=== PATIENT | female | born 1950 | race Caucasian/White ===

== ENCOUNTER 2023-08-15 13:50 | Outpatient (AMB) | payer MEDICARE, SELFPAY ==
--- NOTE | 2023-08-15 14:08 | A.OFFVIS_ITS ---
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 She will feel frequently that her heart would be irregular occasionally in a pattern sometimes. She occasionally feels jumping of her heart but this is not frequent. When she is up and about an active she does not have any active symptoms of palpitation. Does complain of exertional shortness of breath but she thinks this is related to her deconditioning. Denies any orthopnea, PND. Does have bilateral leg edema. Denies any exertional chest pain. No lightheadedness, syncope. Takes all her medications and currently on Lasix 40 mg for bilateral lower extremity edema. She says she has not able to wear compression stockings due to neuropathy which bothers her. [facility] Medical History HTN (hypertension) Surgical History History of hip surgery Hx of hysterectomy Family History Father CAD (coronary artery disease) Mother CHF (congestive heart failure) Social History Patient Tobacco Use Status: Never used Tobacco Review of Systems Const Denies chills, Denies daytime sleepiness, Denies fatigue, Denies fever(s), Denies frequent falls, Denies poor appetite, Denies snoring, Denies stops breathing during sleep, Denies weakness, Denies weight gain and Denies weight loss Eyes Denies loss of vision ENT Denies dizziness and Denies hearing loss Card Denies chest pain, Denies claudication, Denies leg edema, Denies lightheadedness, Denies palpitations, Denies dyspnea, Denies dyspnea on exertion and Denies orthopnea Resp Denies cough, Denies excessive phlegm production, Denies dyspnea, Denies dyspnea on exertion, Denies snoring and Denies wheezing GI Denies abdominal pain, Denies hematochezia, Denies change in bowel habits, Denies nausea and Denies vomiting Denies urinary frequency and Denies dysuria Musc Denies arthralgias, Denies muscle weakness, Denies numbness and Denies other (frequent falls) Skin/Breast Denies nail changes and Denies rash Neuro Denies Abnormal speech present, Denies dizziness, Denies frequent falls, Denies loss of vision, Denies memory loss, Denies numbness and Denies weakness Psych Denies depression and Denies memory loss Endo Denies fatigue and Denies palpitations Víctor/Lymph Reports easy bruising and Reports other (anemia) Aller/Immun Denies wheezing Physical Exam Vital Signs: Last Vital Signs Pulse 71 08/15/23 14:09 BP 120/74 08/15/23 14:09 BMI result Body Mass Index 41.9 Const General: cooperative, comfortable, no acute distress, alert and awake Nutritional Appearance: obese Orientation/consciousness: patient oriented x3 Limitations: no limitations HEENT Head: Yes normocephalic and Yes atraumatic Neck Neck: Yes trachea midline, Yes supple and Yes no JVD Resp Effort & Inspection: normal respiratory effort Auscultation: clear to auscultation bilaterally Cardio Jugular venous distension: no JVD Rate: regular rate Rhythm: abnormal rhythm with ectopic beats Heart sounds: S1 normal heart sound present, S2 normal heart sound present, no click, no gallops, no murmurs and no rubs Bruits: no carotid bruits GI Auscultation: normal bowel sounds Skin General skin exam: no rashes or lesions noted Neuro General: patient oriented x3 and no focal motor deficits Speech: No Abnormal speech present Extrem General: No clubbing, No cyanosis and Yes edema (Below knee bilateral) Psych Appearance: grossly normal Office Procedures EKG Details: EKG shows normal sinus rhythm with low-voltage QRS at 71 beats per minute [id number], Complete Assessment & Plan Assessment & Plan (1) Exertional dyspnea: Code(s): R06.09 - Other forms of dyspnea Plan: Exertional shortness of breath in this elderly woman with multiple risk factors including hyperlipidemia, hypertension strong family history for coronary artery disease. Will schedule an exercise myocardial perfusion imaging to assess for myocardial ischemia especially given increased burden of arrhythmias. Further treatment based on the findings. Also suggest echocardiogram to evaluate LV systolic and diastolic function to evaluate for left ventricular hypertrophy and/or infiltrative disorder. These tests will be scheduled in near future. Further treatment based on the findings. (2) Cardiac arrhythmia: Code(s): I49.9 - Cardiac arrhythmia, unspecified Plan: Patient has increased symptoms of cardiac arrhythmias mostly that she can hear her irregular pulse. Most likely related to extra systoles, most likely PVCs. Workup for structural heart disease as above. Also suggest a Holter monitor to assess for diagnosis as well to assess for frequency of her arrhythmias. If she is more than 10% of beats as PVCs may require further uptitration of metoprolol therapy. This was discussed with her. We discussed about management of cardiac arrhythmias including avoidance of stimulants such as caffeine and alcohol. She understands and agrees. (3) HTN (hypertension): Code(s): I10 - Essential (primary) hypertension Plan: Longstanding hypertension which is currently well optimized advised to monitor blood pressure at home maintain a log. Goal blood pressure less than 130/84. Low-salt diet was discussed. Consider workup for sleep apnea with home sleep study. Importance of good blood pressure control was discussed. She understands agrees. Follow up in the clinic in 6 weeks time, sooner p.r.n.. Thank you for allowing me to partake in the care Orders: Orders CA stress test Today R06.09 - Other forms of dyspnea NM cardiolite stress test 2 Weeks R06.09 - Other forms of dyspnea, R07.9 - Chest pain, unspecified CA echo transthoracic complete Today I49.9 - Cardiac arrhythmia, unspecified ECG 3 day holter monitor Today I49.9 - Cardiac arrhythmia, unspecified Coding Level of Care Code New Pt Level 4 (71386) Diagnoses Exertional dyspnea R06.09 Cardiac arrhythmia I49.9 HTN (hypertension) I10 CPT Codes EKG - CPT: 17434-[id number], Complete ([id number])
[2023-08-15 14:09] VITALS: BP 120/74; PULSE 71; BMI 41.9
== END 2023-08-15 14:41 | disposition home or self-care (01) ==
PROVIDERS: PCP Internal Medicine; Visit Provider Internal Medicine Cardiovascular Disease
DX: R06.09 Other forms of dyspnea (principal); I49.9 Cardiac arrhythmia, unspecified; I10 Essential (primary) hypertension
CPT/HCPCS: 93010; 99204

== ENCOUNTER → 2023-08-15 13:50 | Outpatient (BNVA) | payer MEDICARE, SELFPAY | PROVIDERS: Visit Provider Internal Medicine Cardiovascular Disease | DX: I49.9 Cardiac arrhythmia, unspecified (principal); I10 Essential (primary) hypertension; R06.09 Other forms of dyspnea | CPT/HCPCS: 93005; 99202 ==

== ENCOUNTER → 2023-09-21 08:14 | Outpatient (REF) | payer MEDICARE, SELFPAY ==
--- NOTE | ~2023-09-21 | NM_ITS ---
Myocardial perfusion study Indication: Chest pain to evaluate for myocardial ischemia Technique: The patient was brought in for a Lexiscan perfusion study on 09/21/2023. Patient performed low-level exercise and was injected 0.4 mg of Lexiscan intravenously. Within a minute of injection, 35 mCi of sestamibi was given intravenously. Images were obtained using the SPECT gamma camera interlaced with the gating device. Images were obtained in supine position. Resting perfusion study was performed on 09/26/2023. Patient was administered 35 mCi of sestamibi intravenously at rest. Images were then obtained in supine position. Images obtained with and without CT attenuation. Total DLP 136 mGy-cm. Images were processed with the software and compared side to side in short axis, horizontal long axis and vertical long axis views. Findings: The stress perfusion study showed non attenuated images show normal uptake of radiotracer in all segments of LV myocardium. Is suggestion of left ventricle hypertrophy. Attenuation corrected images also some thinning at the distal septum and apex of the LV myocardium.. The gated study shows normal LV systolic function with calculated LVEF of 65%. LV cavity is normal in size. The gated study shows normal systolic wall thickening and contraction of segments. Resting study shows no change in perfusion pattern compared to stress perfusion study. Gating at rest reveals normal systolic wall motion with ejection fraction at 75%. The findings are consistent with no clear reversible defect suggestive of ischemia.. NM/NM cardiolite stress test Impression: 1. Myocardial perfusion imaging study shows likely normal myocardial perfusion 2. Gated LVEF is 65% 3. Transient ischemic dilatation not present EKG is nondiagnostic for ischemia
--- NOTE | 2023-09-21 08:19 | HM_ITS ---
Conclusion: 1. Patient was monitored for total period of 3 days 2. Baseline was normal sinus rhythm with average heart rate of 58 beats per minute 3. Frequent sinus bradycardia noted with 62% of time heart rate below 60 beats per minute with no significant pauses 4. Frequent PVCs noted with total burden of 4.7% with no significant ventricular tachyarrhythmias 5. Patient reported 5 events with symptoms of skipped heartbeats correlating with sinus rhythm with PVCs MTDD
--- NOTE | 2023-09-21 08:19 | CA_ITS ---
Acquisition Time: 2023-09-21 09:21:48 Total Exercise Time: 00:00:17 Test Indications: Dyspnea Medications: ASA+ +ATORVASTATIN FUROSEMIDE GABAPENTIN METOPROLOL NIFEDIPINE VALSARTAN Protocol: DAIN Max HR: 110 BPM 74% of Pred: 148 BPM Max BP: 130/068 mmHG Max Work Load: 1.5 METS Exercise stress test 17 sec of Dain protocol achieiving achieivng approximately 70% MPHR, patient couldnt keep up with treadmill with isolated PVCs at rest. Patient assisted to chair. Test changed to pharmacological stress test with lexiscan. Pharmacological stress test with Lexiscan injection while sitting and kicking her legs, with mild SOB, no chest discomfort, with isolated PVCs, with normotensive response to injection, with T wave inversion lead 3. Aminophylline 75mg IVP given to reverse Lexiscan. Nuclear images pending. Test reviewed with Dr. Godfrey. Referred By: Zurdo Vazquez Overread By: Rebeka Dorsey
--- NOTE | 2023-09-21 08:19 | CA_ITS ---
Transthoracic Echocardiogram Patient (Last, First, Middle): Freddie Smith, Gender: Female Date of : 1950 Age: 73 Procedure Date: 09/21/2023 Procedure Type: Transthoracic Echocardiogram Location: OP Height: 154.94 cm Weight: 99.79 kg BSA: 1.97 m2 Heart Rate: bpm BP: 120 / 70 mmHg Clinical Assistant: JAMI Referring MD: Zurdo Vazquez MD Under Presser: Zurdo Vazquez MD Symptoms: I49.9 - Cardiac arrhythmia, unspecified Study Quality: Fair ECG Rhythm: Sinus Conclusions: - 1. Normal LV systolic function with LVEF of 60-65% with impaired relaxation filling 2. Mildly dilated left atrium 3. Cardiac valvular Dopplers within normal limits 4. No gross pericardial effusion Findings Left Ventricle Normal left ventricular size, thickness, and systolic function. The visually estimated ejection fraction is between 60-65%. Spectral Doppler is indicative of an impaired relaxation filling pattern. E/E prime ratio is between 8 and 15 consistent with indeterminate filling pressures. Peak GLS is -20.1%, within normal limits. Right Ventricle Normal right ventricular cavity size and systolic function. Atria The left atrium is mildly dilated. Interatrial shunt cannot be excluded. The right atrium is likely dilated. Aortic Valve The aortic valve was not well visualized. There is mild calcification of the aortic valve. There is no aortic valve stenosis. The peak aortic velocity is 1.52 m/s with a calculated peak gradient of 9 mmHg. The mean gradient is 5 mmHg. The aortic valve area is 2.30 cm2. There is no aortic valve regurgitation. Mitral Valve There is mild anterior and posterior mitral leaflet thickening. There is mild mitral annular calcification. There is no mitral valve regurgitation. There is no mitral valve stenosis. Pulmonic Valve The pulmonic valve was not well visualized. Tricuspid Valve Likely normal tricuspid valve structure and function. Tricuspid regurgitation envelope is inadequate for calculation of right ventricular systolic pressure. Normal right atrial pressure. Great Vessels The aorta was not well visualized. The pulmonary artery was not well visualized. There is no dilatation of the ascending aorta measuring 3.20 cm. Venous The inferior vena cava is normal in size and collapses greater than 50% with inspiration. Pericardium/Pleural There is no evidence of pericardial effusion. Prior Study Comparison No prior study available for comparison. Measurements 2D Linear Measurements IVSd: 1.17 0.6-0.9/0.6-1.0 cm LVIDd: 4.25 3.9-5.3/4.2-5.9 cm LVIDd Index: 2.16 2.4-3.2/2.2-3.1 cm/m2 LVIDs: 3.01 2.0-3.6 cm LVPWd: 0.74 0.7-1.1 cm LA Diam: 4.00 2.7-3.8/3.0-4.0 cm LAIDs Index: 2.03 1.5-2.3 cm/m2 LV Mass: 163.73 67-162/88-224 g LV Mass Index: 83.11 43-95/49-115 g/m2 LVOT Diam: 1.90 3.0+(-)1.3 cm 2D Systolic Function EF 4C: 62.00 >55% EF 2C: 68.70 >55% EF BiP: 65.40 >55% Mitral Valve MV Pk E: 1.04 MV PK A: 1.18 MV Decel Time: 186.00 E/A: 0.90 E'Lateral: 11.70 E'Medial: 8.05 E/E' Med: 12.90 E/E' Lat: 8.90 PHT: 54.00 MVA PHT: 4.07 Decel [place]: 5.60 Aortic Valve AoV Pk Tj: 1.52 AoV Mn Tj: 1.07 AoV VTI: 0.37 AoV Pk Grad: 9.00 Aov Mn Grad: 5.00 JT Cont.VTI: 2.30 LVOT LVOT Pk Tj: 1.31 LVOT Mn Tj: 0.84 LVOT VTI: 0.30 LVOT Pk Grad: 7.00 LVOT Mn Grad: 3.00 LVOT Diam: 1.90 LVOT Area: 2.84 Diastolic Function MV Pk E: 1.04 MV Pk A: 1.18 E/A: 0.90 E'Medial: 8.05 E/E' Med: 12.90 E' Laterial: 11.70 E/E' Lat: 8.90 Right Ventricle TAPSE (mm): 32.30 TVS' Tj: 14.40 Tricuspid Valve RA Press: 3.00 Great Vessels Aorta Sinus of Valsalva: 3.17 2.0-3.[address] [place]: 2.11 1.7-3.4 cm Ao Asc: 3.20 2.1-3.4 cm Updated in Other Vendor System with Status of Final Zurdo Vazquez MD electronically signed on 09/21/2023 2:01:20 PM with status of Final
== END ==
LOC: HO.CARD 08:14
PROVIDERS: PCP Internal Medicine; Visit Provider Internal Medicine Cardiovascular Disease
DX: R06.09 Other forms of dyspnea (principal); I49.9 Cardiac arrhythmia, unspecified; I10 Essential (primary) hypertension; I49.3 Ventricular premature depolarization; R07.9 Chest pain, unspecified
CPT/HCPCS: 78452; 93017; 93242; 93306; 93356; A9500; J0280; J2785

== ENCOUNTER → 2023-09-21 08:19 | Outpatient (BNV) | payer MEDICARE, SELFPAY | PROVIDERS: PCP Internal Medicine; Visit Provider Internal Medicine Cardiovascular Disease | DX: I49.3 Ventricular premature depolarization (principal) | CPT/HCPCS: 78452; 93016; 93018; 93244; 93306 ==

== ENCOUNTER 2023-09-26 12:41 | Outpatient (REF) | payer MEDICARE, SELFPAY ==
[2023-09-26 13:06] LABS: MANUAL DIFF FLAG NO
[2023-09-26 13:33] LABS: Basophils Percent Auto 0.5 % (0-2); Eosinophils Absolute Auto 0.1 X10*3/uL (0.0-0.4); Eosinophils Percent Auto 2.2 % (0-4); Hematocrit 43.2 % (37.0-47.0); Hemoglobin 14.4 g/dl (12.0-16.0); Imm Gran Abs Auto 0.02 X10*3/uL (0.00-0.03); Imm Gran Pct Auto 0.3 % (0.0-0.4); Lymphocytes Absolute Auto 1.6 X10*3/uL (1.2-4.9); Lymphocytes Percent Auto 25.7 % (20-40); Mean Corpuscular HGB Conc 33.3 g/dl (31.0-35.0); Mean Corpuscular Hemoglobin 32.2 pg (27.0-33.0); Mean Corpuscular Volume 96.6 fL (80.0-98.0); Mean Platelet Volume 9.5 fL (9.4-12.3); Monocytes Absolute Auto 0.4 X10*3/uL (0.1-1.2); Monocytes Percent Auto 5.6 % (2-11); Neutrophils Absolute Auto 4.2 x10*3/uL (2.0-8.3); Neutrophils Percent Auto 65.7 % (45-73); Platelet Count 207 X10*3/uL (160-400); Red Blood Count 4.47 X10*6/uL (4.20-5.50); Red Cell Distribution Width 12.4 % (11.0-16.0); White Blood Count 6.4 X10*3/uL (4.8-10.8)
[2023-09-26 13:43] LABS: Estimated Average Glucose 117 mg/dL; Hemoglobin A1c % 5.7 % (<6.0)
[2023-09-26 14:29] LABS: Appearance Urine Clear; Color Urine Yellow; Glucose Urine UA Negative (Negative); Leukocyte Esterase Urine Small (1+) (Negative); Nitrite Urine Negative (Negative); PH 7.5 (5.0-9.0); UMIC TRIGGER UA YES; Urine Blood Negative (Negative); Urine Ketones Negative (Negative); Urine Protein Negative (Neg-Trace)
[2023-09-26 14:30] LABS: Alanine Aminotransferase 26 U/L (0-31); Albumin Level 4.4 g/dL (3.5-5.0); Alkaline Phosphatase 101 U/L (39-117); Anion Gap 13 (12-20); Aspartate Amino Transferase 20 U/L (5-31); Bilirubin Total 1.1 mg/dL (0.0-1.0); Blood Urea Nitrogen 11 mg/dL (9-16); Calcium 10.1 mg/dL (8.4-10.2); Carbon Dioxide 30 mmol/L (22-29); Chloride 104 mmol/L (96-108); Estimated Glomerular Filt Rate 57; Glucose Random 126 mg/dL (60-115); Sodium 143 mmol/L (135-145); Total Protein 7.2 g/dL (6.5-8.0)
[2023-09-26 14:39] LABS: Bacteria Urine None Seen (None Seen); Hyaline Casts Urine 0-2 /LPF (0-2); RBC Urine 0-2 /HPF (0-2); WBC Urine 0-5 /HPF (0-5)
[2023-09-26 14:45] LABS: Thyroid Stimulating Hormone 0.97 uIU/mL (0.32-4.0)
[2023-09-26 14:54] LABS: Creatinine Urine 65.87 mg/dL; Microalbum/Creatinine Ratio Ur 12.1 ug/mg cr (<30)
== END 2023-09-26 12:42 | disposition home or self-care (01) ==
LOC: HO.LAB 12:41
PROVIDERS: PCP Internal Medicine; Visit Provider Internal Medicine
DX: I10 Essential (primary) hypertension (principal); R73.03 Prediabetes; K21.9 Gastro-esophageal reflux disease without esophagitis; R60.0 Localized edema
CPT/HCPCS: 36415; 80053; 81001; 82043; 82570; 83036; 84443; 85025

== ENCOUNTER 2023-09-27 14:43 | Outpatient (AMB) | payer MEDICARE, SELFPAY ==
--- NOTE | 2023-09-27 14:55 | A.OFFVIS_ITS ---
Intake Vital Signs 09/27/23 14:56 Height 5 ft 2 in Weight 226 lb 10.163 oz BMI 41.4 BP 140/62 H Blood Pressure Location Lt brachial Position Sitting Pulse 79 Pulse Source Pulse Oximeter Intake Visit Reasons: f/up holter/ echo/ mibi/ NS Intake Note: pt its here for holter/echo/mibi/ pt states that she its doing fine. [employer] Wafers Tester Required: No Accompanied by: Self / Same As Patient Allergies No Known Allergies Allergy (Verified 08/15/23 14:12) Medication List - Last Reconciled 09/27/23 by Julia Alexander, ZENAIDA-C acetaminophen ER (Arthritis Pain Relief (acetaminophen) ER) 1,300 mg PO Q12H aspirin (Adult Aspirin Regimen) 81 mg PO DAILY atorvastatin 20 mg PO DAILY famotidine (Acid-Pep) 20 mg PO BID furosemide 40 mg PO gabapentin 1,200 mg PO BID metoprolol tartrate 50 mg PO BID nifedipine ER 30 mg PO DAILY valsartan 80 mg PO DAILY HPI f/up holter/ echo/ mibi/ NS HPI Details Freddie is a 73-year-old female past medical history of hypertension, morbid obesity who was recently evaluated for heart palpitations. She underwent a Holter monitor, echocardiogram and stress test and now presents for follow-up. Today she states that she can hear irregular heartbeats in her ears. At times she will feel the palpitation in her chest. Overall her symptom has not increased. She does notice it daily. She has had no lightheadedness, presyncope, syncope, falls. No chest discomfort at rest or with activity. She has some mild shortness of breath with exertion which is not new. No shortness of breath at rest, PND, orthopnea. She does have bilateral lower leg edema which is chronic. She does only light physical activity. She used to work as a nurse and retired 2 years ago. She takes her medications as directed. She tells me she has been on metoprolol and nifedipine for many many years. [facility] Medical History HTN (hypertension) Surgical History History of hip surgery Hx of hysterectomy Family History Father CAD (coronary artery disease) Mother CHF (congestive heart failure) Social History Patient Tobacco Use Status: Never used Tobacco Review of Systems Const All systems reviewed & are unremarkable except as noted in HPI and below Denies chills, Denies fatigue, Denies fever(s), Denies frequent falls, Denies weakness, Denies weight gain and Denies weight loss ENT Denies dizziness Card Details: cant hear irregular heart beat in her ear. Occassional will feel palpitation in her chest Denies chest pain, Denies leg edema, Denies lightheadedness, Denies palpitations, Denies dyspnea and Denies dyspnea on exertion Resp Denies cough, Denies dyspnea and Denies dyspnea on exertion GI Denies hematochezia Musc Denies abnormal gait, Denies muscle weakness, Denies numbness, Denies radiating pain into limb and Denies tingling Neuro Denies abnormal gait, Denies dizziness, Denies frequent falls, Denies numbness, Denies tingling and Denies weakness Endo Denies fatigue and Denies palpitations Physical Exam Vital Signs: Last Vital Signs Pulse 79 09/27/23 14:56 BP 140/62 H 09/27/23 14:56 BMI result Body Mass Index 41.4 Const General: cooperative, healthy appearing, comfortable and no acute distress Orientation/consciousness: patient oriented x3 Neck Neck: Yes normal visual inspection and Yes no JVD Carotids: normal carotid upstroke Resp Effort & Inspection: normal respiratory effort Auscultation: clear to auscultation bilaterally, no rales, no rhonchi and no wheezes Cardio Jugular venous distension: no JVD Rate: regular rate Rhythm: regular rhythm Heart sounds: S1 normal heart sound present, S2 normal heart sound present, no murmurs and no rubs Neuro General: patient oriented x3 Extrem General: Yes normal to inspection, No no pedal edema and Yes edema (soft swelling in each lower leg, R>L ) Psych Appearance: grossly normal Mental Status: mental status grossly normal Speech and movement: Normal speech and movement present Assessment & Plan Assessment & Plan (1) Cardiac arrhythmia: Code(s): I49.9 - Cardiac arrhythmia, unspecified Plan: Reports of heart palpitations and hearing irregular heartbeat in her ears. No presyncope, syncope, falls. EKG done last visit shows sinus rhythm with no acute ST or T-wave abnormalities, no arrhythmia. She had Holter monitor done 09/21/2023 showing sinus rhythm with frequent PVCs, 4.74% with brief and SVT, longest 9 beats, occasional PACs 0.9% average heart rate 59, heart rate range 41 to 112. An echocardiogram was done 09/21/2023 showing EF 60-65%, mildly dilated left atrium, normal valves. A pharmacological nuclear stress test was done on 09/21/2023 showing normal myocardial perfusion imaging. She continues on metoprolol tartrate 50 mg b.i.d. which has been a long-term medication for her. With her resting heart rate 59 unable to further titrate metoprolol to treat PVCs. Recent lab work reviewed showing normal electrolytes, kidney function, thyroid, CBC. Reviewed reduction in caffeinated beverages, maintaining good hydration, getting adequate rest, activity as tolerated. Will send message to her primary annual giving officer regarding med management and will let her know if any changes are recommended. Cardiology office visit in 6 months, sooner if needed. All the above was reviewed it with her and she is agreeable to this plan. (2) Frequent PVCs: Code(s): I49.3 - Ventricular premature depolarization Plan: As above (3) Exertional dyspnea: Code(s): R06.09 - Other forms of dyspnea Plan: Shortness of breath with exertional activities. Cardiac testing as above showing essentially normal echo and stress test. No concern for angina. Likely related to obesity and deconditioning. (4) HTN (hypertension): Code(s): I10 - Essential (primary) hypertension Plan: Mildly elevated at this visit. She tells me she took her medications just prior to this visit. She periodically checks her blood pressure at home and reports that it is usually in the normal range. She will continue to check periodically. Plan Time spent on chart review, documentation, interview and assessment Coding Level of Care Code Est Pt Level 4 (23446) Diagnoses Cardiac arrhythmia I49.9 Frequent PVCs I49.3 Exertional dyspnea R06.09 HTN (hypertension) I10 Time Spent (min) 28
[2023-09-27 14:56] VITALS: BP 140/62; PULSE 79; BMI 41.4
== END 2023-09-27 15:36 | disposition home or self-care (01) ==
PROVIDERS: PCP Internal Medicine; Visit Provider Nurse Practitioner Family
DX: I49.9 Cardiac arrhythmia, unspecified (principal); I49.3 Ventricular premature depolarization; R06.09 Other forms of dyspnea; I10 Essential (primary) hypertension
CPT/HCPCS: 99214

== ENCOUNTER → 2023-09-27 14:43 | Outpatient (BNVA) | payer MEDICARE, SELFPAY | PROVIDERS: PCP Internal Medicine; Visit Provider Nurse Practitioner Family | DX: I49.9 Cardiac arrhythmia, unspecified (principal); I49.3 Ventricular premature depolarization; R06.09 Other forms of dyspnea; I10 Essential (primary) hypertension | CPT/HCPCS: 99212 ==

== ENCOUNTER 2024-04-02 16:30 | Outpatient (REF) | payer MEDICARE, SELFPAY ==
[2024-04-02 18:26] LABS: Estimated Average Glucose 123 mg/dL; Hemoglobin A1c % 5.9 % (<6.0)
[2024-04-02 18:42] LABS: Alanine Aminotransferase 35 U/L (0-31); Albumin Level 4.4 g/dL (3.5-5.0); Alkaline Phosphatase 97 U/L (39-117); Anion Gap 15 (12-20); Aspartate Amino Transferase 26 U/L (5-31); Bilirubin Total 1.1 mg/dL (0.0-1.0); Blood Urea Nitrogen 12 mg/dL (9-16); Calcium 10.5 mg/dL (8.4-10.2); Carbon Dioxide 28 mmol/L (22-29); Chloride 103 mmol/L (96-108); Estimated Glomerular Filt Rate 53; Glucose Random 118 mg/dL (60-115); Potassium 4.7 mmol/L (3.3-5.1); Sodium 141 mmol/L (135-145)
== END 2024-04-02 16:31 | disposition home or self-care (01) ==
LOC: HO.LAB 16:30
PROVIDERS: PCP Internal Medicine; Visit Provider Internal Medicine
DX: I10 Essential (primary) hypertension (principal); R73.03 Prediabetes; R60.9 Edema, unspecified; N18.9 Chronic kidney disease, unspecified
CPT/HCPCS: 36415; 80053; 83036

== ENCOUNTER 2024-04-05 15:15 | Outpatient (AMB) | payer MEDICARE, SELFPAY ==
[2024-04-05 15:27] VITALS: BP 142/80; PULSE 68; BMI 41.4
--- NOTE | 2024-04-05 15:27 | MHC.OFFVIS ---
Vital Signs 04/05/24 15:27 Height 5 ft 2 in Weight 226 lb 3.108 oz BMI 41.4 BP 142/80 H Blood Pressure Location Lt brachial Position Sitting Pulse 68 Pulse Source Pulse Oximeter Intake Visit Reasons: 6 mth f/up Intake Note: 6 month f/u. Manufacturing Coordinator Required: No Accompanied by: Self / Same As Patient Allergies No Known Allergies Allergy (Verified 08/15/23 14:12) Medication List - Last Reconciled 04/05/24 by Julia Alexander NP-C acetaminophen ER (Arthritis Pain Relief (acetaminophen) ER) 1,300 mg PO Q12H aspirin (Adult Aspirin Regimen) 81 mg PO DAILY atorvastatin 20 mg PO DAILY famotidine (Acid-Pep) 20 mg PO BID furosemide 40 mg PO gabapentin 600 mg PO Q8H metoprolol tartrate 50 mg PO BID nifedipine ER 30 mg PO DAILY valsartan 80 mg PO DAILY HPI HPI 6 mth f/up: Details: Freddie is a 73-year-old female past medical history of hypertension, morbid obesity, heart palpitations with finding of brief SVT who presents for follow-up. Today she reports that she has been less bothered by her heart palpitations. When she gets them she can hear it beating fast in her ears and at times feel it in her chest. She believes the episodes only last a few seconds and goes away. She has not had any sustained rapid or irregular heart rates. She has had no lightheadedness, presyncope, syncope, falls. No chest discomfort at rest or with activity. She has some mild shortness of breath with exertion which is not new. No shortness of breath at rest, PND, orthopnea or pitting edema. She does only light physical activity. She is a retired nurse. She takes her medications as directed. She tells me she has been on metoprolol and nifedipine for many many years. Blood pressure just checked at her PCP office and it was 120s systolic. [facility] Medical History HTN (hypertension) Surgical History History of hip surgery Hx of hysterectomy Family History Father CAD (coronary artery disease) Mother CHF (congestive heart failure) Social History Alcohol intake: never Patient Tobacco Use Status: Never used Tobacco Review of Systems Const All systems reviewed & are unremarkable except as noted in HPI and below Denies chills, Denies fatigue, Denies fever(s), Denies weight gain and Denies weight loss ENT Denies dizziness Card Details: brief palpitation - seconds Denies chest pain, Denies leg edema, Denies lightheadedness, Denies palpitations, Reports dyspnea on exertion, Denies orthopnea and Denies other Resp Denies cough and Reports dyspnea on exertion GI Denies hematochezia and Denies change in stool character Musc Denies abnormal gait, Denies muscle weakness, Denies numbness, Denies radiating pain into limb and Denies tingling Neuro Denies abnormal gait, Denies dizziness, Denies numbness and Denies tingling Endo Denies fatigue and Denies palpitations Physical Exam Vital Signs: Last Vital Signs Pulse 68 04/05/24 15:27 BP 142/80 H 04/05/24 15:27 BMI result Body Mass Index 41.4 Const General: cooperative, healthy appearing, comfortable and no acute distress Orientation/consciousness: patient oriented x3 Neck Neck: Yes normal visual inspection Resp Effort & Inspection: normal respiratory effort Auscultation: clear to auscultation bilaterally, no crackles, no rales, no rhonchi and no wheezes Cardio Jugular venous distension: no JVD Rate: regular rate Rhythm: regular rhythm Heart sounds: S1 normal heart sound present, S2 normal heart sound present, no murmurs and no rubs Neuro General: patient oriented x3 Extrem General: Yes normal to inspection, No no pedal edema and No calf tenderness Psych Appearance: grossly normal Mental Status: mental status grossly normal Speech and movement: Normal speech and movement present Assessment & Plan Assessment & Plan (1) Cardiac arrhythmia: Code(s): I49.9 - Cardiac arrhythmia, unspecified Category: Medical Plan: Reports of heart palpitations and hearing irregular heartbeat in her ears. No presyncope, syncope, falls. She had Holter monitor done 09/21/2023 showing sinus rhythm with frequent PVCs, 4.74% with brief and SVT, longest 9 beats, occasional PACs 0.9% average heart rate 59, heart rate range 41 to 112. An echocardiogram was done 09/21/2023 showing EF 60-65%, mildly dilated left atrium, normal valves. A pharmacological nuclear stress test was done on 09/21/2023 showing normal myocardial perfusion imaging. She continues on metoprolol tartrate 50 mg b.i.d. which has been a long-term medication for her. With her resting heart rate 59 unable to further titrate metoprolol to treat PVCs. Previously reviewed her lab work showing normal electrolytes, kidney function, thyroid, CBC. At this time she is noticing less heart palpitations. When she feels it only last a few seconds. Reviewed the findings brief SVT and frequent PVCs. Discussed the reduction in caffeinated beverages, maintaining good hydration, getting adequate rest, activity as tolerated. Cardiology office visit in 1 year, sooner if needed. (2) Frequent PVCs: Code(s): I49.3 - Ventricular premature depolarization Category: Medical Plan: As above (3) Exertional dyspnea: Code(s): R06.09 - Other forms of dyspnea Category: Medical Plan: Shortness of breath with exertional activities. Cardiac testing as above showing essentially normal echo and stress test. No concern for angina. Likely related to obesity and deconditioning. (4) HTN (hypertension): Code(s): I10 - Essential (primary) hypertension Category: Medical Plan: Mildly elevated at this visit. She tells me recently had it checked at her PCP office and the systolic blood pressure was in the 120s. She periodically checks her blood pressure at home and reports that it is usually in the normal range. She will continue to check periodically. No medication changes made. Plan Time spent on chart review, documentation, interview and assessment Coding Level of Care Code Est Pt Level 3 (88552) Diagnoses Cardiac arrhythmia I49.9 Frequent PVCs I49.3 Exertional dyspnea R06.09 HTN (hypertension) I10 Time Spent (min) 24
== END 2024-04-05 15:52 | disposition home or self-care (01) ==
PROVIDERS: PCP Internal Medicine; Visit Provider Nurse Practitioner Family
DX: I49.9 Cardiac arrhythmia, unspecified (principal); I49.3 Ventricular premature depolarization; R06.09 Other forms of dyspnea; I10 Essential (primary) hypertension
CPT/HCPCS: 99213

== ENCOUNTER → 2024-04-05 15:15 | Outpatient (BNVA) | payer MEDICARE, SELFPAY | PROVIDERS: PCP Internal Medicine; Visit Provider Nurse Practitioner Family | DX: I49.9 Cardiac arrhythmia, unspecified (principal); I49.3 Ventricular premature depolarization; I10 Essential (primary) hypertension; R06.09 Other forms of dyspnea | CPT/HCPCS: 99212 ==

== ENCOUNTER 2024-06-26 12:09 | Outpatient (REF) | payer MEDICARE, SELFPAY ==
[2024-06-26 13:06] LABS: MANUAL DIFF FLAG NO
[2024-06-26 13:13] LABS: Basophils Absolute Auto 0.1 X10*3/uL (0.0-0.2); Basophils Percent Auto 0.8 % (0-2); Eosinophils Absolute Auto 0.2 X10*3/uL (0.0-0.4); Eosinophils Percent Auto 2.6 % (0-4); Hematocrit 41.5 % (37.0-47.0); Hemoglobin 13.9 g/dl (12.0-16.0); Imm Gran Abs Auto 0.01 X10*3/uL (0.00-0.03); Imm Gran Pct Auto 0.2 % (0.0-0.4); Lymphocytes Absolute Auto 2.2 X10*3/uL (1.2-4.9); Lymphocytes Percent Auto 33.6 % (20-40); Mean Corpuscular HGB Conc 33.5 g/dl (31.0-35.0); Mean Corpuscular Hemoglobin 32.6 pg (27.0-33.0); Mean Corpuscular Volume 97.2 fL (80.0-98.0); Mean Platelet Volume 9.1 fL (9.4-12.3); Monocytes Absolute Auto 0.4 X10*3/uL (0.1-1.2); Monocytes Percent Auto 6.7 % (2-11); Neutrophils Absolute Auto 3.6 x10*3/uL (2.0-8.3); Neutrophils Percent Auto 56.1 % (45-73); Platelet Count 243 X10*3/uL (160-400); Red Blood Count 4.27 X10*6/uL (4.20-5.50); Red Cell Distribution Width 12.6 % (11.0-16.0); White Blood Count 6.4 X10*3/uL (4.8-10.8)
[2024-06-26 13:32] LABS: Alanine Aminotransferase 36 U/L (0-31); Albumin Level 4.5 g/dL (3.5-5.0); Alkaline Phosphatase 90 U/L (39-117); Anion Gap 18 (12-20); Aspartate Amino Transferase 33 U/L (5-31); Bilirubin Total 1.4 mg/dL (0.0-1.0); Blood Urea Nitrogen 15 mg/dL (9-16); Calcium 9.9 mg/dL (8.4-10.2); Carbon Dioxide 27 mmol/L (22-29); Chloride 100 mmol/L (96-108); Cholesterol 145 mg/dL (<200); Estimated Glomerular Filt Rate 46; Glucose Fasting 138 mg/dL (60-99); HDL Cholesterol 47 mg/dL (>40); LDL Cholesterol Calculated 63 mg/dL (<100); Potassium 4.5 mmol/L (3.3-5.1); Sodium 140 mmol/L (135-145); Total Protein 7.6 g/dL (6.5-8.0); Triglycerides 175 mg/dL (<150)
== END 2024-06-26 12:10 | disposition home or self-care (01) ==
LOC: HO.10HDL 12:09
PROVIDERS: Visit Provider Internal Medicine
DX: I12.9 Hypertensive chronic kidney disease with stage 1 through stage 4 chronic kidney disease, or unspecified chronic kidney disease (principal); N18.9 Chronic kidney disease, unspecified; R73.01 Impaired fasting glucose; E78.00 Pure hypercholesterolemia, unspecified
CPT/HCPCS: 36415; 80053; 80061; 85025

== ENCOUNTER 2024-12-14 15:12 | Outpatient (AMB) | payer MEDICARE, SELFPAY ==
--- OUTSIDE RECORDS SUMMARY | 2024-12-14 15:15 | XMS_ITS | Clinical Summary ---
Author Organization [facility] Address [address] [place] [address] Care Team Providers Care Print Production Associate Name Role Phone No, Pcp FOUNDRY HAND Primary Care Provider Unavailabl e Allergies No known active allergies Medications COZAAR 50 mg tablet TAKE 1 TABLET BY MOUTH ONCE A DAY 3 8 Active furosemide (LASIX) 40 MG tablet ALTERNATE TAKING 1 TABLET WITH 1.5 TABLETS BY MOUTH EVERY OTHER DAY 3 8 Active gabapentin (NEURONTIN) 600 MG tablet TAKE 1 TABLET BY MOUTH THREE TIMES A DAY DIRECTED 3 8 Active metoprolol (LOPRESSOR) 50 MG tablet TAKE 1 TABLET BY MOUTH TWICE A DAY 3 8 Active NIFEdipine (PROCARDIA XL) 30 MG 24 hr tablet TAKE 1 TABLET BY MOUTH ONCE A DAY 3 8 Active Social History Tobacco Use Types Packs/Day Years Used Date Smoking Tobacco: Never Assessed Comments No Sex and Gender Information Value Date Recorded Sex Assigned at Not on file Legal Sex Female 8:17 AM EDT Gender Identity Not on file Sexual Orientation Not on file Last Filed Vital Signs Vital Sign Reading Time Taken Comments Blood Pressure 139/78 03/27/2018 8:22 AM EDT Pulse 60 03/27/2018 8:22 AM EDT Temperature 36.6 ??C (97.9 ??F) 03/27/2018 8:22 AM ED T Respiratory Rate 12 03/27/2018 8:22 AM EDT Oxygen Saturation 98% 03/27/2018 8:22 AM EDT Inhaled Oxygen Concentration - - Weight - - Height - - Body Mass Index - - Plan of Treatment Health Maintenance Due Date Last Done Comments Colorectal Cancer: COLONOSCO PY Screening every 10 yrs (or Modifier) 1950 Depression: Screening Annual ly using PHQ-2/9 in Adults 18 yrs or above (or HM Modifier)([facility]) 1969 Hepatitis C Virus Infection in Adolescents and Adults: Screening (or Modifier) ([facility]) 1969 JANET Screening: Once using ST OP-BANG Questionnaire for Adults with Conditions or high BMI([facility]) 1969 SDOH Screening Reminder: Denisse bailey for all adults ([facility]) 1969 Tobacco Smoking Cessation: i n Adults excluding Women: Behavioral and Pharmacotherapy Interventions ([facility]) 1969 DTaP/Tdap/Td Vaccines ([facility]) (1 - Tdap) 1970 Colorectal Cancer Screening 45 -75 Yrs (or HM Modifier ) 1996 Colorectal Cancer: FLEXIBLE SIGMOIDOSCOPY Screening every 5 yrs 1996 Colorectal Cancer: Fecal Imm unochemical Test (FIT) Annually [facility] 1996 Colorectal Cancer: High-sens itivity gFOBT Screening Annually [facility] 1996 Colorectal Cancer: Stool Col oguard Screening every 3 yrs 1996 Colorectal Cancer:CT Colonography Screening every 5 yr s 1996 zzRETIRED Lipid Screening: E very 5 yrs for Women aged 45+ (or HM Modifier) ([facility]) 1997 Breast Cancer: Screening Denisse bailey age 50-74 yrs (or HM Modifier)([facility]) 2001 Pneumococcal Vaccination Scr eening: Patients 50+ yrs of age ([facility]) (1 of 1 - PCV) 2001 Zoster/Shingles Vaccine Seri es Screening: Adults aged 18+ yrs (or HM Modifiers)([facility]) (1 of 2) 2001 Osteoporosis Screening to Pr event Fractures: Women aged 65 years+ ([facility]) 2016 COVID-19 Vaccine Screening: Initial Series and Booster Status ([facility]) ( - 2023- season) 2024 Flu Vaccination: Ages 65+: Y early High Dose Recommended (or Modifier)([facility]) 02/15/2025 RSV Vaccines (1 - 1-dose 75+ series) 2026 Medical Devices Not on file Insurance [facility] [address] [place] [id number] Care Teams Print Production Associate Relationship Specialty Start Date End Date No, Pcp, FOUNDRY HAND N/A Do not use PCP - General 04/16/20
--- NOTE | 2024-12-14 15:49 | MHC.PC.OV ---
Vital Signs 12/14/24 15:52 Height 5 ft 2 in Weight 102.058 kg BMI 41.1 BP 120/66 Respiration 16 Pulse 58 Pulse Source Pulse Oximeter Temp 97.7 F Temp Source Temporal Artery Scan Pulse Oximetry (%) 97 Oxygen Delivery Method Room Air Intake Visit Reasons: Routine Store Promoter Required: No Accompanied by: Self / Same As Patient Allergies No Known Allergies Allergy (Verified 12/14/24 15:49) HPI HPI Comments History of Present Illness Details 74-year-old female with history of hypertension, chronic low back pain, peripheral neuropathy, hyperlipidemia, class 3 obesity presents to the office today for management of chronic conditions and to establish care. Her only concern today is a tick bite which he noticed 1 week ago. She states this was not a very small tick and was an engorged. She is unsure how long the tick was on her body. Denies any rashes. No new arthralgias. No fevers, headache, fatigue. She does report chronic low back pain both midline and bilateral paraspinal. There is no radiation. No weakness, paresthesias, saddle anesthesia. She also has neuropathy of the bilateral feet but this does not radiate from the low back. She manages this with gabapentin. She also reports compliance with her antihypertensives and blood pressure in the office today is controlled at 120/66. She does reportcolonoscopies are up-to-date and has these performed [facility]. She is due for mammogram and DEXA scan. ROS: General: No fevers, malaise, unintentional weight loss HEENT: No blurred vision, diplopia. No sore throat, nasal congestion, rhinorrhea, sinus pain, ear pain Cardiovascular: No chest pain, palpitations, or leg edema Respiratory: No shortness of breath, wheezing, cough GI: No abdominal pain, nausea, vomiting, diarrhea, constipation, melena, hematochezia : No dysuria, hematuria, increased urinary frequency, decreased urinary output MSK: see hpi Neuro: No headaches, weakness. See hpi Skin: No rashes or lesions EXAM: Constitutional - Awake and Alert, No apparent distress Eyes - PERRLA, EOMI Cardiovascular - S1S2, RRR, No edema Respiratory - Normal lung expansion, Normal respiratory effort, No respiratory distress, CTA bilaterally Extremities - no calf tenderness bilaterally, no swelling Skin - Warm/Dry Neurological - Alert & oriented x3 Psychological - Appropriate affect [facility] Medical History (Updated 12/15/24 @ 07:57 by PILO Champion) Obesity, class 3 HLD (hyperlipidemia) Peripheral neuropathy HTN (hypertension) Surgical History History of hip surgery Hx of hysterectomy Family History Father CAD (coronary artery disease) Mother CHF (congestive heart failure) Social History Alcohol intake: never Patient Tobacco Use Status: Never used Tobacco Physical exam (Primary Care) Vital Signs: Last Vital Signs Temp 97.7 F 12/14/24 15:52 Pulse 58 12/14/24 15:52 Resp 16 12/14/24 15:52 BP 120/66 12/14/24 15:52 Pulse Ox 97 12/14/24 15:52 Oxygen Delivery Method Room Air 12/14/24 15:52 BMI result Body Mass Index 41.1 Tobacco/Smoking Status: Tobacco use Status Patient Tobacco Use Status Never used Tobacco 12/14/24 15:49 Coding Level of Care Code New Pt Level 4 (49704) Complex EM visit Add On G2211 Diagnoses HTN (hypertension) I10 Peripheral neuropathy G62.9 HLD (hyperlipidemia) E78.5 Tick bite W57.XXXA Elevated LFTs R79.89 Obesity, class 3 E66.813 Assessment & Plan Assessment & Plan (1) HTN (hypertension): Code(s): I10 - Essential (primary) hypertension Category: Medical Plan: Controlled with blood pressure 120/66. Continue valsartan 80 mg daily, nifedipine 30 mg ER daily, metoprolol 50 mg b.i.d.. (2) Peripheral neuropathy: Code(s): G62.9 - Polyneuropathy, unspecified Category: Medical Plan: Check vit b12. Continue gabapentin 600mg qid (3) HLD (hyperlipidemia): Code(s): E78.5 - Hyperlipidemia, unspecified Category: Medical Plan: Lipid panel ordered. Continue atorvastatin 20 mg daily. Consider adjustment pending results. Recommend diet low in saturated fat and highly processed foods. (4) Tick bite: Code(s): W57.XXXA - Bitten or stung by nonvenomous insect and other nonvenomous arthropods, initial encounter Category: Medical Plan: Tick panel ordered. (5) Elevated LFTs: Code(s): R79.89 - Other specified abnormal findings of blood chemistry Category: Medical Plan: Liver panel and GGT ordered. Consider right upper quadrant ultrasound if these remain elevated. Avoid hepatotoxins (6) Obesity, class 3: Code(s): E66.813 - Obesity, class 3 Category: Medical Plan: Weight loss efforts encouraged. Recommend diet lower in refined sugars and simple carbohydrates as well as calories in general. Recommend increased protein intake along with vegetables and fruits. Recommend weight-bearing exercise Plan Follow-up in the office in 4 months, labs to be completed prior to visit as well as following visit today. Orders: Orders Liver Panel 12/14/24 I10 - Essential (primary) hypertension, R73.9 - Hyperglycemia, unspecified, R79.89 - Other specified abnormal findings of blood chemistry, W57.XXXA - Bitten or stung by nonvenomous insect and other nonvenomous arthropods, initial encounter, Z13.1 - Encounter for screening for diabetes mellitus Hemoglobin A1c 12/14/24 I10 - Essential (primary) hypertension, R73.9 - Hyperglycemia, unspecified, R79.89 - Other specified abnormal findings of blood chemistry, W57.XXXA - Bitten or stung by nonvenomous insect and other nonvenomous arthropods, initial encounter, Z13.1 - Encounter for screening for diabetes mellitus Vitamin B12 12/14/24 G62.9 - Polyneuropathy, unspecified, Z78.0 - Asymptomatic menopausal state Basic Metabolic Panel 12/14/24 I10 - Essential (primary) hypertension, R73.9 - Hyperglycemia, unspecified, R79.89 - Other specified abnormal findings of blood chemistry, W57.XXXA - Bitten or stung by nonvenomous insect and other nonvenomous arthropods, initial encounter, Z13.1 - Encounter for screening for diabetes mellitus Lipid Panel 12/14/24 I10 - Essential (primary) hypertension, R73.9 - Hyperglycemia, unspecified, R79.89 - Other specified abnormal findings of blood chemistry, W57.XXXA - Bitten or stung by nonvenomous insect and other nonvenomous arthropods, initial encounter, Z13.1 - Encounter for screening for diabetes mellitus Gamma Glutamyl Transpeptidase 12/14/24 I10 - Essential (primary) hypertension, R73.9 - Hyperglycemia, unspecified, R79.89 - Other specified abnormal findings of blood chemistry, W57.XXXA - Bitten or stung by nonvenomous insect and other nonvenomous arthropods, initial encounter, Z13.1 - Encounter for screening for diabetes mellitus UA CC w/rflx Micro + Cult 12/14/24 I10 - Essential (primary) hypertension, R73.9 - Hyperglycemia, unspecified, R79.89 - Other specified abnormal findings of blood chemistry, W57.XXXA - Bitten or stung by nonvenomous insect and other nonvenomous arthropods, initial encounter, Z13.1 - Encounter for screening for diabetes mellitus Vitamin D 25-OH Total 12/14/24 G62.9 - Polyneuropathy, unspecified, Z78.0 - Asymptomatic menopausal state XR DEXA appendicular skeleton 12/14/24 Z78.0 - Asymptomatic menopausal state
[2024-12-14 15:52] VITALS: BP 120/66; PULSE 58; RESP 16; TEMP 36.5; O2SAT 97; BMI 41.1
== END 2024-12-14 16:23 | disposition home or self-care (01) ==
LOC: HO.HMCHD 15:12
PROVIDERS: PCP Physician Assistant; Visit Provider Physician Assistant
DX: I10 Essential (primary) hypertension (principal); G62.9 Polyneuropathy, unspecified; E78.5 Hyperlipidemia, unspecified; W57.XXXA Bitten or stung by nonvenomous insect and other nonvenomous arthropods, initial encounter; R79.89 Other specified abnormal findings of blood chemistry; E66.813 Obesity, class 3

== ENCOUNTER → 2024-12-14 15:12 | Outpatient (BNVA) | payer MEDICARE, SELFPAY | PROVIDERS: PCP Physician Assistant; Visit Provider Physician Assistant | DX: I10 Essential (primary) hypertension (principal); G62.9 Polyneuropathy, unspecified; E78.5 Hyperlipidemia, unspecified; M54.50 Low back pain, unspecified; G89.29 Other chronic pain; E66.813 Obesity, class 3; T14.8XXA Other injury of unspecified body region, initial encounter; W57.XXXA Bitten or stung by nonvenomous insect and other nonvenomous arthropods, initial encounter; Y93.9 Activity, unspecified; Y92.9 Unspecified place or not applicable; Y99.9 Unspecified external cause status; Z68.41 Body mass index [BMI] 40.0-44.9, adult; R79.89 Other specified abnormal findings of blood chemistry; Z78.0 Asymptomatic menopausal state | CPT/HCPCS: 99202 ==

== ENCOUNTER 2024-12-18 16:08 | Outpatient (REF) | payer MEDICARE, SELFPAY ==
--- OUTSIDE RECORDS SUMMARY | 2024-12-18 17:08 | XMS_ITS | Clinical Summary ---
Author Organization [facility] [employer] Address [address] [place] [address] Care Team Providers Care Counselor Aide Name Role Phone No, Pcp CUT PRESS OPERATOR Primary Care Provider Unavailabl e Allergies No [...] Adults 18 yrs or above (or HM Modifier)([facility]) 1969 Hepatitis C Virus Infection in Adolescents and Adults: Screening (or Modifier) ([facility]) 1969 JANET Screening: Once using ST OP-BANG Questionnaire for Adults with Conditions or high BMI([facility]) 1969 SDOH Screening Reminder: Dneisse bailey for all adults ([facility]) 1969 Tobacco Smoking Cessation: i n Adults excluding Women: Behavioral and Pharmacotherapy Interventions ([facility]) 1969 DTaP/Tdap/Td Vaccines ([facility]) (1 - Tdap) 1970 Colorectal Cancer Screening 45 -75 Yrs (or HM Modifier ) 1996 Colorectal Cancer: FLEXIBLE SIGMOIDOSCOPY Screening every 5 yrs 1996 Colorectal Cancer: Fecal Imm unochemical Test (FIT) Annually [facility] 1996 Colorectal Cancer: High-sens itivity gFOBT Screening Annually [facility] 1996 Colorectal Cancer: Stool Col oguard Screening every 3 yrs 1996 Colorectal Cancer:CT Colonography Screening every 5 yr s 1996 zzRETIRED Lipid Screening: E very 5 yrs for Women aged 45+ (or HM Modifier) ([facility]) 1997 Breast Cancer: Screening Denisse bailey age 50-74 yrs (or HM Modifier)([facility]) 2001 Pneumococcal Vaccination Scr eening: Patients 50+ yrs of age ([facility]) (1 of 1 - PCV) 2001 Zoster/Shingles Vaccine Seri es Screening: Adults aged 18+ yrs (or HM Modifiers)([facility]) (1 of 2) 2001 Osteoporosis Screening to Pr event Fractures: Women aged 65 years+ ([facility]) 2016 COVID-19 Vaccine Screening: Initial Series and Booster Status ([facility]) ( - 2023- season) 2024 Flu Vaccination: Ages 65+: Y early High Dose Recommended (or Modifier)([facility]) 02/15/2025 RSV Vaccines (1 - 1-dose 75+ series) 2026 [employer] Devices Not on file Insurance [facility] [address] [place] [id number] Care Teams Counselor Aide Relationship Specialty Start Date End Date No, Pcp, CUT PRESS OPERATOR N/A Do not use PCP - General 04/16/20
[2024-12-18 17:11] LABS: Estimated Average Glucose 126 mg/dL; Hemoglobin A1C 150.9337 umol/L; Total Hemoglobin (HGBA1C) 3597.7403 umol/L
[2024-12-18 17:11] LABS: Appearance Urine Cloudy; Color Urine Dark Yellow; Glucose Urine UA Negative (Negative); Leukocyte Esterase Urine Moderate (2+) (Negative); Nitrite Urine Negative (Negative); Specific Gravity - Urine 1.025 (1.005-1.025); UMIC TRIGGER UACC YES; Urine Blood Negative (Negative); Urine Ketones Trace mg/dL (Negative); Urine Protein Trace mg/dL (Neg-Trace)
[2024-12-18 17:47] LABS: Alanine Aminotransferase 34 U/L (0-31); Albumin Level 4.4 g/dL (3.5-5.0); Alkaline Phosphatase 100 U/L (39-117); Anion Gap 15 (12-20); Aspartate Amino Transferase 30 U/L (5-31); Bilirubin Direct 0.4 mg/dL (0.0-0.5); Bilirubin Total 1.3 mg/dL (0.0-1.0); Blood Urea Nitrogen 13 mg/dL (9-16); Calcium 9.6 mg/dL (8.4-10.2); Carbon Dioxide 28 mmol/L (22-29); Chloride 103 mmol/L (96-108); Cholesterol 154 mg/dL (<200); Estimated Glomerular Filt Rate 59; Gamma Glutamyl Transpeptidase 65 U/L (7-33); Glucose Random 118 mg/dL (60-115); HDL Cholesterol 46 mg/dL (>40); LDL Cholesterol Calculated 72 mg/dL (<100); Potassium 4.3 mmol/L (3.3-5.1); Sodium 142 mmol/L (135-145); Total Protein 6.9 g/dL (6.5-8.0); Triglycerides 181 mg/dL (<150); Vitamin D 25-OH Total 54.7 ng/mL (>30)
[2024-12-18 17:53] LABS: Vitamin B12 844 pg/mL (200-900)
[2024-12-18 18:03] LABS: Bacteria Urine 2+ (None Seen); Renal Epithelial Cells Urine Present; Squamous Epithelial Cell Urine >20 /HPF (0-2); Transitional Epi Cells Urine Present; UACC Culture Trigger YES
== END 2024-12-18 16:09 | disposition home or self-care (01) ==
LOC: HO.LAB 16:08
PROVIDERS: PCP Physician Assistant; Visit Provider Physician Assistant
DX: I10 Essential (primary) hypertension (principal); Z13.1 Encounter for screening for diabetes mellitus; R73.9 Hyperglycemia, unspecified; G62.9 Polyneuropathy, unspecified; Z78.0 Asymptomatic menopausal state
CPT/HCPCS: 36415; 80048; 80061; 80076; 81001; 81003; 82306; 82607; 82977; 83036; 87086

== ENCOUNTER 2025-04-11 14:35 | Outpatient (AMB) | payer MEDICARE, SELFPAY ==
[2025-04-11 14:49] VITALS: BP 120/64; PULSE 62; BMI 41.0
--- NOTE | 2025-04-11 14:49 | MHC.OFFVIS ---
Vital Signs 04/11/25 14:49 Height 5 ft 2 in Weight 224 lb 6.889 oz BMI 41.0 BP 120/64 Blood Pressure Location Lt brachial Position Sitting Pulse 62 Pulse Source Monitor Intake Visit Reasons: 1 yr follow up [place] Conservation Laborer Required: No Allergies No Known Allergies Allergy (Verified 04/11/25 14:52) Medication List - Last Reconciled 04/11/25 by Julia Alexander, ZENAIDA-C acetaminophen ER (Arthritis Pain Relief (acetaminophen) ER) 1,300 mg PO Q12H aspirin (Adult Aspirin Regimen) 81 mg PO 3XW atorvastatin 20 mg PO DAILY 90 days famotidine (Acid-Pep) 20 mg PO BID furosemide 40 mg PO gabapentin 600 mg PO QID metoprolol tartrate 50 mg PO BID 90 days nifedipine ER 30 mg PO DAILY valsartan 80 mg PO DAILY HPI HPI 1 yr follow up: Details: Freddie is a 73-year-old female past medical history of hypertension, morbid obesity, SVT who presents for follow-up. Today she reports that she does get heart palpitations at times. She state the episodes are usually brief with longest lasting about 5 minutes. She will feel palpitations up into her ears, otherwise she feels well during palpitations. She says she is not bothered by this much. She has not had episodes in the last few months. She still drinks caffeinated beverages including 1 coffee and 1 Coca-Cola a day. No chest discomfort, lightheadedness, or concerning shortness of breath. She will get mild leg edema at times. She admits to being mostly sedentary. She is a retired nurse. She takes her medications as directed. [facility] Medical History Prediabetes Obesity, class 3 HLD (hyperlipidemia) Peripheral neuropathy HTN (hypertension) Surgical History History of hip surgery Hx of hysterectomy Family History Father CAD (coronary artery disease) Mother CHF (congestive heart failure) Social History Alcohol intake: never Patient Tobacco Use Status: Never used Tobacco Review of Systems Const All systems reviewed & are unremarkable except as noted in HPI and below ENT Denies dizziness Card Details: occassional brief heart palpitations Denies chest pain, Denies chest pain at rest, Denies chest pain with activity, Denies rapid heart rate, Denies pedal edema, Denies edema, Denies leg edema, Denies lightheadedness, Denies palpitations, Denies dyspnea, Denies dyspnea on exertion and Denies orthopnea Resp Denies cough, Denies dyspnea and Denies dyspnea on exertion GI Denies hematochezia and Denies change in stool character Musc Denies abnormal gait, Reports limited range of motion, Reports muscle cramps, Denies muscle weakness, Denies numbness, Denies radiating pain into limb, Denies stiffness and Denies tingling Neuro Denies abnormal gait, Denies dizziness, Denies numbness and Denies tingling Endo Denies palpitations Physical Exam Vital Signs: Last Vital Signs Pulse 62 04/11/25 14:49 BP 120/64 04/11/25 14:49 BMI result Body Mass Index 41.0 Const General: cooperative, healthy appearing, comfortable and no acute distress Orientation/consciousness: patient oriented x3 Neck Neck: Yes normal visual inspection Resp Effort & Inspection: normal respiratory effort Auscultation: clear to auscultation bilaterally, no crackles, no rales, no rhonchi and no wheezes Cardio Jugular venous distension: no JVD Rate: regular rate Rhythm: regular rhythm Heart sounds: S1 normal heart sound present, S2 normal heart sound present, no murmurs and no rubs Neuro General: patient oriented x3 Extrem General: Yes normal to inspection, No no pedal edema and No calf tenderness Psych Appearance: grossly normal Mental Status: mental status grossly normal Speech and movement: Normal speech and movement present Office Procedures EKG Details: Today, read by me sinus rhythm with PVC, rate 62, Qtc 428ms [id number], Complete Assessment & Plan Assessment & Plan (1) Cardiac arrhythmia: Code(s): I49.9 - Cardiac arrhythmia, unspecified Category: Medical Plan: Intermittent elevated heart rates that she can feel in her ears, without associated symptoms. Holter monitor done 09/21/2023 showing sinus rhythm with frequent PVCs, 4.74% with brief and SVT, longest 9 beats, occasional PACs 0.9% average heart rate 59, heart rate range 41 to 112. An echocardiogram was done 09/21/2023 showing EF 60-65%, mildly dilated left atrium, normal valves. A pharmacological nuclear stress test was done on 09/21/2023 showing normal myocardial perfusion imaging. She is most likely feeling atrial tachycardia/SVT. Her symptoms are treated with metoprolol tartrate 50 mg b.i.d, and she still has some breakthrough episodes. Episodes do not happen often. Instructed to notify this office if her symptoms increase then a Holter monitor will be ordered at that time. Reviewed reduction in caffeinated beverages, maintain good hydration, continue activity as tolerated. Cardiology office visit in 1 year, sooner if needed. (2) Frequent PVCs: Code(s): I49.3 - Ventricular premature depolarization Category: Medical Plan: As above (3) HTN (hypertension): Code(s): I10 - Essential (primary) hypertension Category: Medical Plan: Blood pressure goal less than 130/80. Well controlled at this time. No medication changes made. Continue metoprolol, nifedipine and valsartan. Plan Time spent on chart review, documentation, interview and assessment Coding Level of Care Code Est Pt Level 3 (23532) Complex EM visit Add On G2211 Diagnoses Cardiac arrhythmia I49.9 Frequent PVCs I49.3 HTN (hypertension) I10 CPT Codes EKG - CPT: 12735-[id number], Complete ([id number]) Time Spent (min) 22
--- OUTSIDE RECORDS SUMMARY | 2025-04-11 18:57 | XMS_ITS | Clinical Summary ---
Author Organization [facility] [facility] [employer] Address [address] [place] [address] Care Team Providers Care Call Worker Name Role Phone No, Pcp CARROTING MACHINE OFFBEARER Primary Care Provider Unavailabl e Allergies No [...] 60 03/27/2018 8:22 AM EDT Temperature 36.6 C (97.9 F) 03/27/2018 8:22 AM EDT Respiratory Rate 12 03/27/2018 8:22 AM EDT [...] Adults 18 yrs or above (or HM Modifier)([facility]) 1969 Hepatitis C Virus Infection in Adolescents and Adults: Screening (or Modifier) ([facility]) 1969 JANET Screening: Once using ST OP-BANG Questionnaire for Adults with Conditions or high BMI([facility]) 1969 SDOH Screening Reminder: Denisse ruballterence for all adults ([facility]) 1969 Tobacco Smoking Cessation: i n Adults excluding Women: Behavioral and Pharmacotherapy Interventions ([facility]) 1969 DTaP/Tdap/Td Vaccines ([facility]) (1 - Tdap) 1970 Colorectal Cancer Screening 45 -75 Yrs (or HM Modifier ) 1996 Colorectal Cancer: FLEXIBLE SIGMOIDOSCOPY Screening every 5 yrs 1996 Colorectal Cancer: Fecal Imm unochemical Test (FIT) Annually [facility] 1996 Colorectal Cancer: High-sens itivity gFOBT Screening Annually [facility] 1996 Colorectal Cancer: Stool Col oguard Screening every 3 yrs 1996 Colorectal Cancer:CT Colonography Screening every 5 yr s 1996 Breast Cancer: Screening Denisse leo age 50-74 yrs (or HM Modifier)([facility]) 2001 Pneumococcal Vaccination Scr eening: Patients 50+ yrs of age ([facility]) (1 of 1 - PCV) 2001 Zoster/Shingles Vaccine Seri es Screening: Adults aged 18+ yrs (or HM Modifiers)([facility]) (1 of 2) 2001 Osteoporosis Screening to Pr event Fractures: Women aged 65 years+ ([facility]) 2016 Flu Vaccination: Ages 65+: Y early High Dose Recommended (or Modifier)([facility]) 02/15/2025 COVID-19 Vaccine Screening: Initial Series and Booster Status ([facility]) ( - 2023- season) 2025 RSV Vaccines (1 - 1-dose 75+ series) 2026 Medical Devices Not on file Insurance Care Teams Call Worker Relationship Specialty Start Date End Date No, Pcp, CARROTING MACHINE OFFBEARER N/A Do not use PCP - General 04/16/20
== END 2025-04-11 15:15 | disposition home or self-care (01) ==
LOC: HO.HCS 14:35
PROVIDERS: PCP Internal Medicine; Visit Provider Nurse Practitioner Family
DX: I49.9 Cardiac arrhythmia, unspecified (principal); I49.3 Ventricular premature depolarization; I10 Essential (primary) hypertension
CPT/HCPCS: 93010; 99213; G2211

== ENCOUNTER → 2025-04-11 14:35 | Outpatient (BNVA) | payer MEDICARE, SELFPAY | PROVIDERS: PCP Internal Medicine; Visit Provider Nurse Practitioner Family | DX: I49.9 Cardiac arrhythmia, unspecified (principal); I49.3 Ventricular premature depolarization; I10 Essential (primary) hypertension; E66.01 Morbid (severe) obesity due to excess calories; Z68.41 Body mass index [BMI] 40.0-44.9, adult; E78.5 Hyperlipidemia, unspecified | CPT/HCPCS: 93005; 99212 ==

== ENCOUNTER 2025-04-15 13:02 | Outpatient (AMB) | payer MEDICARE, SELFPAY ==
--- NOTE | 2025-04-15 13:10 | A.OFFPC_ITS ---
Vital Signs 04/15/25 13:11 Height 5 ft 2 in Weight 102.512 kg BMI 41.3 BP 122/64 Pulse 48 L Pulse Source Pulse Oximeter Temp 97.3 F Temp Source Temporal Artery Scan Pulse Oximetry (%) 97 Oxygen Delivery Method Room Air Intake Visit Reasons: 4 Month F/U - see comments Mosaic Tiler Required: No Accompanied by: Self / Same As Patient Allergies No Known Allergies Allergy (Verified 04/15/25 13:12) Tobacco use date assessed: 04/15/25 Fall risk assessment: No Falls in past year Last assessed Fall Risk: 04/15/25 Dental Screening Dental Screen Date: 04/15/25 Did you have a dental visit in the last 12 months?: Yes Did you have a dental problem in the last 6 months where you did not have access to dental care?: No Was dental information given to patient?: No HPI HPI Comments History of Present Illness Details 74-year-old female with history of hyper tension, chronic low back pain, peripheral neuropathy, prediabetes, hyperlipidemia, class 3 obesity, SVT presenting to the office today for management of chronic conditions and to establish care. SVT-following with [facility]. Has been limiting caffeine. She is on metoprolol 50 mg twice daily and nifedipine 30 mg ER. Hyperlipidemia-last LDL 76. On atorvastatin 20 mg daily Chronic low back pain/peripheral neuropathy-on Tylenol and gabapentin 600 mg 4 times daily. Hypertension-blood pressure in the office 122/64. On valsartan 80 mg daily, nifedipine 30 mg ER daily, metoprolol 50 mg twice daily. Also on Lasix Prediabetes-last A1c 6.0% Concerns: Vertiginous episodes intermittently. Has occurred when lying in bed without head movements as well as when leaning her head backwards. Describes a room spinning. Has not happened when she is walking. Reports this only lasts for several sec and is relatively infrequent. She does report pulsatile tinnitus primarily in the right side. She also has tinnitus at baseline. Denies any hearing loss, nausea, vomiting, headaches, otalgia or pain over the mastoid. Health maintenance: Mammogram ordered Colonoscopies performed at [facility] and are up-to-date Reports Pap smear is up-to-date at [facility] ROS: General: No fevers, malaise, unintentional weight loss HEENT: No blurred vision, diplopia. No sore throat, nasal congestion, rhinorrhea, sinus pain, ear pain Cardiovascular: No chest pain, palpitations, or leg edema Respiratory: No shortness of breath, wheezing, cough GI: No abdominal pain, nausea, vomiting, diarrhea, constipation, melena, hematochezia : No dysuria, hematuria, increased urinary frequency, decreased urinary output MSK: No myalgia, back pain Neuro: No headaches, weakness, paresthesias Skin: No rashes or lesions EXAM: Constitutional - Awake and Alert, No apparent distress Eyes - PERRL Ears-external ears normal, canals clear with slight erythema, tympanic membranes intact and pearly tripp. No pain over the mastoid bilaterally Cardiovascular - S1S2, RRR, No edema. No carotid bruits Respiratory - Normal lung expansion, Normal respiratory effort, No respiratory distress, CTA bilaterally Extremities - no calf tenderness bilaterally, no swelling Skin - Warm/Dry Neurological - Alert & oriented x3. Horizontal nystagmus right side noted. Otherwise, CN II-XII intact Psychological - Appropriate affect [facility] Medical History Prediabetes Obesity, class 3 HLD (hyperlipidemia) Peripheral neuropathy HTN (hypertension) Surgical History History of hip surgery Hx of hysterectomy Family History Father CAD (coronary artery disease) Mother CHF (congestive heart failure) Social History Housing: House Alcohol intake: never Patient Tobacco Use Status: Never used Tobacco e-Cigarette/Vaping Use: Never Used service: No Current occupational status: retired Cognitive needs: No Hearing needs: No Vision needs: Yes (Rx glasses) Questionnaire AUDIT C Alcohol Use Questionnaire (AUDIT-C) 1. How often do you have a drink containing alcohol?: Never Total Score: 0 Physical exam (Primary Care) Vital Signs: Last Vital Signs Temp 97.3 F 04/15/25 13:11 Pulse 48 L 04/15/25 13:11 BP 122/64 04/15/25 13:11 Pulse Ox 97 04/15/25 13:11 Oxygen Delivery Method Room Air 04/15/25 13:11 BMI result Body Mass Index 41.3 Tobacco/Smoking Status: Tobacco use Status Tobacco use date assessed 04/15/25 04/15/25 13:15 Patient Tobacco Use Status Never used Tobacco 04/15/25 13:10 e-Cigarette/Vaping Use Never Used 04/15/25 13:15 Coding Level of Care Code Est Pt Level 4 (00261) Complex EM visit Add On G2211 Diagnoses HTN (hypertension) I10 HLD (hyperlipidemia) E78.5 Prediabetes R73.03 Vertigo R42 Pulsatile tinnitus, right ear H93.A1 Assessment & Plan Assessment & Plan (1) HTN (hypertension): Code(s): I10 - Essential (primary) hypertension Category: Medical Plan: Controlled. Continue current therapies (2) HLD (hyperlipidemia): Code(s): E78.5 - Hyperlipidemia, unspecified Category: Medical Plan: Controlled. Continue simvastatin (3) Prediabetes: Code(s): R73.03 - Prediabetes Category: Medical Plan: A1c 6.0%. Diet lower in refined sugars and simple carbohydrates as well as increased exercise to help with weight loss efforts (4) Vertigo: Code(s): R42 - Dizziness and giddiness Category: Medical Plan: Given dizziness/vertigo with unilateral pulsatile tinnitus, referral to ENT placed. Carotid ultrasound also ordered for further evaluation. Given instructions for Cornelius maneuver (5) Pulsatile tinnitus, right ear: Code(s): H93.A1 - Pulsatile tinnitus, right ear Category: Medical Plan: As above Plan Follow-up in the office in 6 months with labs completed prior to visit Orders: Orders US carotid duplex BI Today H93.A9 - Pulsatile tinnitus, unspecified ear, R42 - Dizziness and giddiness Referrals Ear/Nose/Throat Referral H93.A1 - Pulsatile tinnitus, right ear, R42 - Dizziness and giddiness
[2025-04-15 13:11] VITALS: BP 122/64; PULSE 48; TEMP 36.3; O2SAT 97; BMI 41.3
--- OUTSIDE RECORDS SUMMARY | 2025-04-15 14:18 | XMS_ITS | Clinical Summary ---
Author Organization [employer] [facility] [employer] Address [address] [place] [address] Care Team Providers Care Transit Mixer Operator Name Role Phone No, Pcp VEHICLE CHECK IN CLERK Primary Care Provider Unavailabl e Allergies No [...] Adults 18 yrs or above (or HM Modifier)([facility]) 1969 Hepatitis C Virus Infection in Adolescents and Adults: Screening (or Modifier) ([facility]) 1969 JANET Screening: Once using ST OP-BANG Questionnaire for Adults with Conditions or high BMI([facility]) 1969 SDOH Screening Reminder: Denisse ruballterence for all adults ([facility]) 1969 Tobacco Smoking Cessation: i n Adults excluding Women: Behavioral and Pharmacotherapy Interventions ([facility]) 1969 DTaP/Tdap/Td Vaccines ([facility]) (1 - Tdap) 1970 Colorectal Cancer Screening 45 -75 Yrs (or HM Modifier ) 1996 Colorectal Cancer: FLEXIBLE SIGMOIDOSCOPY Screening every 5 yrs 1996 Colorectal Cancer: Fecal Imm unochemical Test (FIT) Annually [facility] 1996 Colorectal Cancer: High-sens itivity gFOBT Screening Annually [facility] 1996 Colorectal Cancer: Stool Col oguard Screening every 3 yrs 1996 Colorectal Cancer:CT Colonography Screening every 5 yr s 1996 Breast Cancer: Screening Denisse leo age 50-74 yrs (or HM Modifier)([facility]) 2001 Pneumococcal Vaccination Scr eening: Patients 50+ yrs of age ([facility]) (1 of 1 - PCV) 2001 Zoster/Shingles Vaccine Seri es Screening: Adults aged 18+ yrs (or HM Modifiers)([facility]) (1 of 2) 2001 Osteoporosis Screening to Pr event Fractures: Women aged 65 years+ ([facility]) 2016 Flu Vaccination: Ages 65+: Y early High Dose Recommended (or Modifier)([facility]) 02/15/2025 COVID-19 Vaccine Screening: Initial Series and Booster Status ([facility]) ( - 2023- season) 2025 RSV Vaccines (1 - 1-dose 75+ series) 2026 [employer] Devices Not on file Insurance Care Teams Transit Mixer Operator Relationship Specialty Start Date End Date No, Pcp, VEHICLE CHECK IN CLERK N/A Do not use PCP - General 04/16/20
== END 2025-04-15 13:43 | disposition home or self-care (01) ==
LOC: HO.HMCHD 13:03
PROVIDERS: PCP Physician Assistant; Visit Provider Physician Assistant
DX: I10 Essential (primary) hypertension (principal); E78.5 Hyperlipidemia, unspecified; R73.03 Prediabetes; R42 Dizziness and giddiness; H93.A1 Pulsatile tinnitus, right ear

== ENCOUNTER → 2025-04-15 13:02 | Outpatient (BNVA) | payer MEDICARE, SELFPAY | PROVIDERS: PCP Physician Assistant; Visit Provider Physician Assistant | DX: I10 Essential (primary) hypertension (principal); E78.5 Hyperlipidemia, unspecified; R73.03 Prediabetes; R42 Dizziness and giddiness; H93.A1 Pulsatile tinnitus, right ear; I47.10 Supraventricular tachycardia, unspecified; Z79.899 Other long term (current) drug therapy | CPT/HCPCS: 99212 ==

== ENCOUNTER 2025-05-10 15:23 | Outpatient (REF) | payer MEDICARE, SELFPAY ==
--- NOTE | ~2025-05-10 | US_ITS ---
EXAMINATION: BILATERAL CAROTID ULTRASOUND WITH DOPPLER HISTORY: H93.A9 - Pulsatile tinnitus, unspecified ear COMPARISON: There are no prior studies available for comparison. TECHNIQUE: Real time and Color and Spectral doppler ultrasonography of the carotid and vertebral arteries was performed in multiple planes. FINDINGS: VERTEBRAL FLOW DIRECTION: Antegrade bilaterally. Normal waveform and peak systolic velocities in the subclavian arteries bilaterally. PEAK SYSTOLIC VELOCITIES (in cm/sec): RIGHT: No visible plaque. CCA: Prox: 89 Dist: 72 ICA: Prox: 96 Mid: 65 Dist: 78 ICA/CCA Ratio: 1.1 ECA: 107 Peak ICA end diastolic velocity (EDV): 96 and 34 LEFT: Mild calcified plaque at the carotid bulb. CCA: Prox: 140 Dist: 86ICA: Prox: 88 Mid: 72 Dist: 96 ICA/CCA Ratio: 0.6 ECA: 96 Peak ICA end diastolic velocity (EDV): 96 and 32 US/US carotid duplex BI IMPRESSION: Right: Right ICA peak systolic velocity measures 96 cm/s with ICA CCA ratio of 1.1. No plaque seen. Normal. Left ICA peak systolic velocity measures 96 cm/s with ICA/CCA ratio of 0.6. Mild atherosclerotic plaque. This is suggestive of 0-49% left ICA stenosis. Electronically signed by: Cookie Cherry MD 05/10/2025 04:35 PM EDT
--- OUTSIDE RECORDS SUMMARY | 2025-05-10 16:53 | XMS_ITS | Clinical Summary ---
Author Organization [facility] Patient Communicator Address [address] [place] [address] Care Team Providers Care Spray Worker Name Role Phone No, Pcp TELEGRAPHIC TYPEWRITER OPERATOR Primary Care Provider Unavailabl e Allergies [...] Adults 18 yrs or above (or HM Modifier)([facility]) 1968 Hepatitis C Virus Infection in Adolescents and Adults: Screening (or Modifier) ([facility]) 1969 JANET Screening: Once using ST OP-BANG Questionnaire for Adults with Conditions or high BMI([facility]) 1969 SDOH Screening Reminder: Denisse ruballterence for all adults ([facility]) 1969 Tobacco Smoking Cessation: i n Adults excluding Women: Behavioral and Pharmacotherapy Interventions ([facility]) 1969 DTaP/Tdap/Td Vaccines ([facility]) (1 - Tdap) 1970 Colorectal Cancer Screening 45 -75 Yrs (or HM Modifier ) 1996 Colorectal Cancer: FLEXIBLE SIGMOIDOSCOPY Screening every 5 yrs 1996 Colorectal Cancer: Fecal Imm unochemical Test (FIT) Annually [facility] 1996 Colorectal Cancer: High-sens itivity gFOBT Screening Annually [facility] 1996 Colorectal Cancer: Stool Col oguard Screening every 3 yrs 1996 Colorectal Cancer:CT Colonography Screening every 5 yr s 1996 Breast Cancer: Screening Denisse leo age 50-74 yrs (or HM Modifier)([facility]) 2001 Pneumococcal Vaccination Scr eening: Patients 50+ yrs of age ([facility]) (1 of 1 - PCV) 2001 Zoster/Shingles Vaccine Seri es Screening: Adults aged 18+ yrs (or HM Modifiers)([facility]) (1 of 2) 2001 Osteoporosis Screening to Pr event Fractures: Women aged 65 years+ ([facility]) 2016 Flu Vaccination: Ages 65+: Y early High Dose Recommended (or Modifier)([facility]) 02/15/2025 COVID-19 Vaccine Screening: Initial Series and Booster Status ([facility]) ( - 2023- season) 2025 RSV Vaccines (1 - 1-dose 75+ series) 2026 [employer] Devices Not on file Insurance Care Teams Spray Worker Relationship Specialty Start Date End Date No, Pcp, TELEGRAPHIC TYPEWRITER OPERATOR N/A Do not use PCP - General 04/16/20
== END 2025-05-10 15:24 | disposition home or self-care (01) ==
LOC: HO.US 15:23
PROVIDERS: PCP Physician Assistant; Visit Provider Physician Assistant
DX: R42 Dizziness and giddiness (principal); H93.A9 Pulsatile tinnitus, unspecified ear
CPT/HCPCS: 93880

== ENCOUNTER → 2025-05-10 15:24 | Outpatient (BNV) | payer MEDICARE, SELFPAY | PROVIDERS: PCP Physician Assistant; Visit Provider Radiology Diagnostic Radiology | DX: H93.A9 Pulsatile tinnitus, unspecified ear (principal); R42 Dizziness and giddiness | CPT/HCPCS: 93880 ==